=== PATIENT | male | born 1960 | race Caucasian/White ===

== ENCOUNTER 2016-12-31 13:51 | Emergency (ER) | payer SELFPAY ==
[2016-12-31] MEDS ORDERED: Metoprolol Tartrate 5 MG/5 ML SDV IVPUSH ONE (14:10)
[2016-12-31] MEDS ORDERED: Sodium Chloride 0.9% 1,000 ML IV SCH (14:15)
[2016-12-31 14:21] VITALS: BP 152/91
--- NOTE | 2016-12-31 14:24 | EDM.PDOC ---
ED HPI GENERAL MEDICAL PROBLEM - General Chief Complaint: Chest Pain Stated Complaint: HEART PROBLEMS, [id number] Time Seen by Provider: 12/31/16 14:06 Source of Information: Reports: Patient History Limitations: Reports: No Limitations - History of Present Illness INITIAL COMMENTS - FREE TEXT/NARRATIVE: 56 yo white male c/o chest tightness since last PM. PMHx. HTN and Arrythmia. Pt. states he stopped the Metoprolol due to unable to buy it. Pt. smokes 1/4 ppd cigs Onset: Other (PMHx. HTN and Arrythmia) Onset Date: 12/30/16 Onset Time: 12:00 Duration: Day(s): Location: Reports: Chest Quality: Reports: Dull Severity: Moderate Improves with: Reports: None Worsens with: Reports: None Context: Reports: Other (Pt. not taking his Metoprolol as ordered) Associated Symptoms: Reports: No Other Symptoms - Related Data Allergies Allergy/AdvReac Type Severity Reaction Status Date / Time No Known Allergies Allergy Verified 12/31/16 13:54 Home Meds: Home Meds amLODIPine [Norvasc] 5 mg PO DAILY 12/31/16 [History] ED ROS GENERAL - Review of Systems Review Of Systems: See Below Constitutional: Reports: No Symptoms HEENT: Reports: No Symptoms Respiratory: Reports: No Symptoms Cardiovascular: Reports: Chest Pain, Lightheadedness Endocrine: Reports: No Symptoms GI/Abdominal: Reports: No Symptoms : Reports: No Symptoms Musculoskeletal: Reports: No Symptoms Skin: Reports: No Symptoms Neurological: Reports: No Symptoms Psychiatric: Reports: No Symptoms Hematologic/Lymphatic: Reports: No Symptoms Immunologic: Reports: No Symptoms ED EXAM, GENERAL - Physical Exam Exam: See Below Exam Limited By: No Limitations General Appearance: Alert, WD/WN, No Apparent Distress Eye Exam: Bilateral Eye: EOMI, PERRL Ears: Normal External Exam Nose: Normal Inspection Throat/Mouth: Normal Inspection, Normal Lips Head: Atraumatic, Normocephalic Neck: Normal Inspection, Supple, Non-Tender Respiratory/Chest: No Respiratory Distress, Lungs Clear, Normal Breath Sounds Cardiovascular: Tachycardia, Irregularly Irregular, Other (with frequent PVCs) GI/Abdominal: Normal Bowel Sounds, Soft, Non-Tender Back Exam: Normal Inspection, Full Range of Motion Extremities: Normal Inspection, Normal Range of Motion, Non-Tender Neurological: Alert, Oriented, CN II-XII Intact, Normal Cognition Psychiatric: Normal Affect, Normal Mood Skin Exam: Warm, Dry, Intact Lymphatic: No Adenopathy Course - Vital Signs Last Recorded V/S: Last Vital Signs Temp 36.3 C 12/31/16 13:56 Pulse 97 12/31/16 14:19 Resp 18 12/31/16 13:56 BP 152/91 H 12/31/16 14:19 Pulse Ox 98 12/31/16 13:56 - Orders/Labs/Meds Orders: Active Orders 24 hr Category Date Time Status Chest 1V Frontal [CR] Urgent Exams 12/31/16 14:08 Ordered Sodium Chloride 0.9% @ 75 MLS/HR(1000ml) Med 12/31/16 14:15 Ordered Sodium Chloride 0.9% [Normal Saline] 1,000 ml IV ASDIRECTED Medication Orders Sodium Chloride (Normal Saline) 1,000 mls @ 75 mls/hr IV ASDIRECTED GURPREET Last Admin: 12/31/16 14:20 Dose: 75 mls/hr Labs: Laboratory Tests 12/31/16 12/31/16 12/31/16 Range/Units 14:04 14:04 14:04 WBC 13.0 H (5.0-10.0) 10^3/uL RBC 5.14 (4.6-6.2) 10^6/uL Hgb 16.2 (14.0-18.0) g/dL Hct 46.2 (40.0-54.0) % MCV 89.9 (80-100) fL MCH 31.5 (27.0-34.0) pg MCHC 35.1 H (33.0-35.0) g/dL Plt Count 191 (150-450) 10^3/uL Neut % (Auto) 55.5 (42.2-75.2) % Lymph % (Auto) 30.8 (20.5-50.1) % [place] % (Auto) 7.4 (2-8) % Eos % (Auto) 5.8 H (1.0-3.0) % Baso % (Auto) 0.5 (0.0-1.0) % PT 9.7 (9.0-12.0) SEC INR 1.0 (0.9-1.2) APTT 21.7 L (22.0-34.0) SEC D-Dimer, Quantitative < 100 (0-400) ng/mL Sodium 140 (135-145) mmol/L Potassium 3.8 (3.6-5.0) mmol/L Chloride 101 (101-111) mmol/L Carbon Dioxide 26.0 (21.0-31.0) mmol/L Anion Gap 16.8 BUN 19 H (7-18) mg/dL Creatinine 0.9 (0.6-1.3) mg/dL Est Cr Clr Drug Dosing 93.50 mL/min Estimated GFR (MDRD) > 60 BUN/Creatinine Ratio 21.11 Glucose 99 (74-105) mg/dL Calcium 9.2 (8.4-10.2) mg/dl Total Bilirubin 0.8 (0.2-1.0) mg/dL AST 17 (10-42) IU/L ALT 12 (10-60) IU/L Alkaline Phosphatase 72 (42-121) IU/L Troponin I < 0.02 (0.00-0.02) ng/ml Total Protein 7.0 (6.7-8.2) g/dl Albumin 4.4 (3.2-5.5) g/dl Globulin 2.6 Albumin/Globulin Ratio 1.69 Meds: Medications Generic Name Dose Route Start Last Admin Trade Name Freq PRN Reason Stop Dose Admin Sodium Chloride 1,000 mls @ 75 mls/hr 12/31/16 14:15 12/31/16 14:20 Normal Saline IV 75 mls/hr ASDIRECTED GURPREET Administration Discontinued Medications Generic Name Dose Route Start Last Admin Trade Name Freq PRN Reason Stop Dose Admin Aspirin 324 mg 12/31/16 14:27 12/31/16 14:31 Aspirin PO 12/31/16 14:28 324 mg ONETIME ONE Administration Metoprolol Tartrate 2.5 mg 12/31/16 14:10 12/31/16 14:19 Lopressor IVPUSH 12/31/16 14:11 2.5 mg ONETIME ONE Administration Departure - Departure Time of Disposition: 15:10 Disposition: DC/Tfer to Other 70 Reason for Transfer *Q: Primary PCI Indicated Condition: Fair Clinical Impression: Atypical chest pain Arrhythmia Qualifiers: Arrhythmia type: paroxysmal tachycardia, unspecified Qualified Code(s): I47.9 - Paroxysmal tachycardia, unspecified; I47 - Paroxysmal tachycardia Forms: ED Department Discharge, Interfacility Transfer EMTALA - My Orders Last 24 Hours: My Active Orders 12/31/16 14:08 Chest 1V Frontal [CR] Urgent 12/31/16 14:15 Sodium Chloride 0.9% @ 75 MLS/HR(1000ml) Sodium Chloride 0.9% [Normal Saline] 1 ,000 ml IV ASDIRECTED - Assessment/Plan Last 24 Hours: My Active Orders 12/31/16 14:08 Chest 1V Frontal [CR] Urgent 12/31/16 14:15 Sodium Chloride 0.9% @ 75 MLS/HR(1000ml) Sodium Chloride 0.9% [Normal Saline] 1 ,000 ml IV ASDIRECTED
[2016-12-31] MEDS ORDERED: Aspirin 81 MG Tab.Chew PO ONE (14:27)
[2016-12-31 14:31] LABS: CHLORIDE,CL 101 mmol/L (101-111); SODIUM,NA 140 mmol/L (135-145)
--- NOTE | 2016-12-31 15:22 | CR ---
Clinical history: 56-year-old male with chest pains. Interpretation: Negative plain film exam. Upright AP portable chest film confirms normal cardiac silhouette without cephalization of vascular f low, signs of alveolar edema or dependent pleural effusion. [place] thorax unremarkable. No lung mass, hilar lymphadenopathy or focal lobar pneumonia. No atelectasis/collapse. No pneumothora x.
--- NOTE | 2017-01-04 12:29 | EKG ---
12/31/2016 - CLARISSA SCHOFIELD - Dmitri 12-lead EKG shows normal sinus rhythm with sinus tachycardia. Paired ventricular premature complexes noted. No significant ST elevation or ST depression noted on this 12-lead EKG. MS interval of 148. QTc of 442. Nonspecific T-wave changes noted on inferior leads. [facility] /[id number]
--- NOTE | 2017-01-05 16:42 | EKG ---
12/31/2016 - CLARISSA SCHOFIELD - TIME: 14:03:02. Twelve-lead EKG shows normal sinus rhythm with sinus tachycardia with heart rate of 97. Paired ventricular premature complexes noted. No significant ST elevation or ST depression noted. Nonspecific ST-T wave changes noted on lead V2 and V3. [facility] /[id number]
--- NOTE | 2017-01-06 09:34 | EKG ---
12/31/2016- CLARISSA SCHOFIELD - Dmitri 12-lead EKG shows normal sinus rhythm with sinus tachycardia with heart rate of 148. Multiple PVCs noted. Nonspecific repolarization abnormalities noted. Multiple PVCs noted. [facility] /[id number]
== END 2016-12-31 15:40 | disposition other institution (70) ==
LOC: DL.ED 13:51
DX: I47.9 Paroxysmal tachycardia, unspecified (principal); Z79.899 Other long term (current) drug therapy
CPT/HCPCS: 36415; 71010; 80053; 84484; 85025; 85379; 85610; 85730; 96365; 96375; 99285; A9270; J7030; 99284; J3490

== ENCOUNTER 2020-01-12 08:39 | Emergency (ER) | payer SELFPAY ==
[2020-01-12 08:55] VITALS: BP 175/94; PULSE 76
--- NOTE | 2020-01-12 09:02 | EDM.PDOC ---
ED HPI GENERAL MEDICAL PROBLEM - General Chief Complaint: Abdominal Pain Stated Complaint: COLON INFECTION Time Seen by Provider: 01/12/20 08:50 Source of Information: Reports: Patient History Limitations: Reports: No Limitations - History of Present Illness INITIAL COMMENTS - FREE TEXT/NARRATIVE: This 59 yo male patient reports to the ED due to a 4 week history of diffuse abdominal pain. The patient reports his pain level is > 10 at this time. The patient reports he currently has pain across his lower abdomen and in his lower back. The patient reports he has had a colon infection in the past (about 1 year ago) with similar symptoms. The patient reports he has been taking aspirin with little to no symptom relief. The patient has not been seen by a primary care facility or attempted to be seen in a primary care facility. The patient denies any dark stools and denies any blood in his stool. Duration: Week(s): (4), Constant, Getting Worse Location: Reports: Abdomen, Back (low back) Quality: Reports: Ache, Sharp, Stabbing Severity: Severe Improves with: Reports: None Worsens with: Reports: None Context: Reports: Other Associated Symptoms: Reports: No Other Symptoms Abdomen Pain Score (Numeric/FACES): 10 - Related Data Allergies Allergy/AdvReac Type Severity Reaction Status Date / Time No Known Allergies Allergy Verified 01/12/20 08:49 Home Meds: Home Meds amLODIPine [Norvasc] 5 mg PO DAILY 12/31/16 [History] Past Medical History HEENT History: Reports: Hard of Hearing, Impaired Vision, Other (See Below) Other HEENT History: deaf Cardiovascular History: Reports: Hypertension Musculoskeletal History: Reports: Back Pain, Chronic Social & Family History - Family History Family Medical History: Noncontributory - Tobacco Use Tobacco Use Status *Q: Unknown Ever Used Tobacco - Caffeine Use Caffeine Use: Reports: Coffee, Soda, Tea ED ROS GENERAL - Review of Systems Review Of Systems: Comprehensive ROS is negative, except as noted in HPI. ED EXAM, GI/ABD - Physical Exam Exam: See Below Exam Limited By: No Limitations General Appearance: Alert, WD/WN, Moderate Distress Eyes: Bilateral: Normal Appearance, EOMI Ears: Normal External Exam, Normal Canal, Hearing Grossly Normal, Normal TMs Nose: Normal Inspection, Normal Mucosa, No Blood Throat/Mouth: Normal Inspection, Normal Lips, Normal Teeth, Normal Gums, Normal Oropharynx, Normal Voice, No Airway Compromise Head: Atraumatic, Normocephalic Neck: Normal Inspection, Supple, Non-Tender, Full Range of Motion Respiratory/Chest: No Respiratory Distress, Lungs Clear, Normal Breath Sounds, No Accessory Muscle Use, Chest Non-Tender Cardiovascular: Normal Peripheral Pulses, Regular Rate, Rhythm, No Edema, No Gallop, No JVD, No Murmur, No Rub GI/Abdominal Exam: No Organomegaly, No Distention, No Abnormal Bruit, No Mass, Tender (lower abdomen) (Male) Exam: Deferred Rectal (Males) Exam: Deferred Back Exam: Normal Inspection, Full Range of Motion, NT Extremities: Normal Inspection, Normal Range of Motion, Non-Tender, Normal Capillary Refill, No Pedal Edema Neurological: Alert, Oriented, CN II-XII Intact, Normal Cognition, Normal Gait, Normal Reflexes, No Motor/Sensory Deficits Psychiatric: Normal Affect, Normal Mood Skin Exam: Warm, Dry, Intact, Normal Color, No Rash Lymphatic: No Adenopathy Course - Vital Signs Last Recorded V/S: Last Vital Signs Temp 36.8 C 01/12/20 08:53 Pulse 76 01/12/20 08:53 Resp 18 01/12/20 08:53 BP 175/94 H 01/12/20 08:53 Pulse Ox 100 01/12/20 08:53 - Orders/Labs/Meds Orders: Active Orders 24 hr Category Date Time Status CULTURE BLOOD [BC] Stat Lab 01/12/20 09:00 Received Labs: Laboratory Tests 01/12/20 01/12/20 01/12/20 Range/Units 09:00 09:00 09:00 WBC 14.0 H (5.0-10.0) 10^3/uL RBC 4.83 (4.6-6.2) 10^6/uL Hgb 14.6 D (14.0-18.0) g/dL Hct 43.9 (40.0-54.0) % MCV 90.9 (80-100) fL MCH 30.2 (27.0-34.0) pg MCHC 33.3 (33.0-35.0) g/dL Plt Count 209 (150-450) 10^3/uL Neut % (Auto) 76.1 H (42.2-75.2) % Lymph % (Auto) 13.4 L (20.5-50.1) % [place] % (Auto) 7.5 (2-8) % Eos % (Auto) 2.6 (1.0-3.0) % Baso % (Auto) 0.4 (0.0-1.0) % Sodium 143 (136-145) mmol/L Potassium 3.7 (3.5-5.1) mmol/L Chloride 105 (98-107) mmol/L Carbon Dioxide 30 (21-32) mmol/L Anion Gap 11.7 (7-13) mEq/L BUN 16 (7-18) mg/dL Creatinine 1.01 (0.70-1.30) mg/dL Est Cr Clr Drug Dosing 82.84 mL/min Estimated GFR (MDRD) > 60 BUN/Creatinine Ratio 15.8 (No establ ref range) Glucose 120 H (74-99) mg/dL Lactic Acid 0.9 (0.4-2.0) mmol/L Calcium 8.3 L (8.5-10.1) mg/dL Total Bilirubin 0.5 (0.2-1.0) mg/dL AST 13 L (15-37) U/L ALT 23 (16-63) U/L Alkaline Phosphatase 96 (46-116) U/L Total Protein 7.1 (6.4-8.2) g/dL Albumin 3.1 L (3.4-5.0) g/dL Globulin 4.0 Albumin/Globulin Ratio 0.78 Amylase 37 (25-115) U/L Lipase 41 L (73-393) U/L Urine Color (YELLOW) Urine Appearance (CLEAR) Urine pH (5.0-9.0) Ur Specific [place] (1.005-1.030) Urine Protein (NEGATIVE) Urine Glucose (UA) (NEGATIVE) Urine Ketones (NEGATIVE) Urine Occult Blood (NEGATIVE) Urine Nitrite (NEGATIVE) Urine Bilirubin (NEGATIVE) Urine Urobilinogen (0.2-1.0) mg/dL Ur Leukocyte Esterase (NEGATIVE) Urine RBC /HPF Urine WBC (0-5/HPF) /HPF Ur Epithelial Cells (NOT SEEN) /HPF Urine Bacteria (0-FEW/HPF) /HPF Urine Mucus (NOT SEEN) /LPF 01/11/ Range/Units 09:15 WBC (5.0-10.0) 10^3/uL RBC (4.6-6.2) 10^6/uL Hgb (14.0-18.0) g/dL Hct (40.0-54.0) % MCV (80-100) fL MCH (27.0-34.0) pg MCHC (33.0-35.0) g/dL Plt Count (150-450) 10^3/uL Neut % (Auto) (42.2-75.2) % Lymph % (Auto) (20.5-50.1) % [place] % (Auto) (2-8) % Eos % (Auto) (1.0-3.0) % Baso % (Auto) (0.0-1.0) % Sodium (136-145) mmol/L Potassium (3.5-5.1) mmol/L Chloride (98-107) mmol/L Carbon Dioxide (21-32) mmol/L Anion Gap (7-13) mEq/L BUN (7-18) mg/dL Creatinine (0.70-1.30) mg/dL Est Cr Clr Drug Dosing mL/min Estimated GFR (MDRD) BUN/Creatinine Ratio (No establ ref range) Glucose (74-99) mg/dL Lactic Acid (0.4-2.0) mmol/L Calcium (8.5-10.1) mg/dL Total Bilirubin (0.2-1.0) mg/dL AST (15-37) U/L ALT (16-63) U/L Alkaline Phosphatase (46-116) U/L Total Protein (6.4-8.2) g/dL Albumin (3.4-5.0) g/dL Globulin Albumin/Globulin Ratio Amylase (25-115) U/L Lipase (73-393) U/L Urine Color Dark yellow (YELLOW) Urine Appearance Clear (CLEAR) Urine pH 6.0 (5.0-9.0) Ur Specific [place] 1.025 (1.005-1.030) Urine Protein 30 H (NEGATIVE) Urine Glucose (UA) Negative (NEGATIVE) Urine Ketones Negative (NEGATIVE) Urine Occult Blood Trace-intact H (NEGATIVE) Urine Nitrite Negative (NEGATIVE) Urine Bilirubin Negative (NEGATIVE) Urine Urobilinogen 0.2 (0.2-1.0) mg/dL Ur Leukocyte Esterase Negative (NEGATIVE) Urine RBC 0-5 /HPF Urine WBC Not seen (0-5/HPF) /HPF Ur Epithelial Cells Rare (NOT SEEN) /HPF Urine Bacteria Not seen (0-FEW/HPF) /HPF Urine Mucus Few H (NOT SEEN) /LPF Meds: Medications Discontinued Medications Generic Name Dose Route Start Last Admin Trade Name [place] PRN Reason Stop Dose Admin Iopamidol 100 ml 01/12/20 09:42 01/12/20 10:06 Isovue-300 (61%) IVPUSH 01/12/20 09:43 100 ml ONETIME ONE Administration - Re-Assessments/Exams Free Text/Narrative Re-Assessment/Exam: 01/12/20 09:00 The patient was advised that nursing staff can start an IV, he can get some pain medications in the IV and draw labs at that time. The patient refused an IV stating "I don't want to be here all day." The patient was also rude to nursing prior to my visit. Departure - Departure Time of Disposition: 10:32 Disposition: Home, Self-Care 01 Condition: Poor Clinical Impression: Diverticulitis, Pericolonic abscess due to diverticulitis - Discharge Information *PRESCRIPTION DRUG MONITORING PROGRAM REVIEWED*: Not Applicable *COPY OF PRESCRIPTION DRUG MONITORING REPORT IN PATIENT CÉSAR: Not Applicable Instructions: Abdominal Pain, Adult, [id number], Diverticulitis Forms: ED Department Discharge Care Plan Goals: The patient was advised of the examination, lab and CT results during the visit. The patient was encouraged to allow us to transfer him to a larger facility for a consult with surgery, but the patient would like to be started on oral medications. The patient was given scripts for 1) Cipro (500 mg) #28 to take 1 by mouth 2 times per day for 14 days, 2) Metronidazole (500 mg) #42 to take 1 by mouth 3 times per day for 14 days and 3) [place] (10/325) #8 to take 1 by mouth every 6 hours as needed for pain. The patient should follow-up with his primary care facility for continued evaluation and management. If the patient has any additional symptoms or concerns, the patient should either return to the emergency department or visit his primary care facility. Sepsis Event Note (ED) - Evaluation Sepsis Screening Result: No Definite Risk - Focused Exam Vital Signs: Vital Signs Temp Pulse Resp BP Pulse Ox 01/12/20 08:53 36.8 C 76 18 175/94 H 100 - My Orders Last 24 Hours: My Active Orders 01/12/20 09:00 CULTURE BLOOD [BC] Stat - Assessment/Plan Last 24 Hours: My Active Orders 01/12/20 09:00 CULTURE BLOOD [BC] Stat
[2020-01-12 09:27] LABS: ANION GAP 11.7 mEq/L (7-13); CHLORIDE,CL 105 mmol/L (98-107); SODIUM,NA 143 mmol/L (136-145)
[2020-01-12] MEDS ORDERED: Iopamidol 612 MG/ML 100 ML Bottle IVPUSH ONE (09:42)
--- NOTE | 2020-01-12 10:13 | CT ---
PROCEDURE INFORMATION: Exam: CT Abdomen And Pelvis With Contrast Exam date and time: 01/12/2020 9:47 AM Age: 59 years old Clinical indication: Abdominal pain; Additional info: Diffuse abdominal pain TECHNIQUE: Imaging protocol: Computed tomography of the abdomen and pelvis with intravenous contrast. Radiation optimization: All CT scans at this facility use at least one of these dose optimization techniques: automated exposure control; mA and/or kV adjustment per patient size (includes targeted exams where dose is matched to clinical indication); or iterative reconstruction. Contrast material: ISOVUE; Contrast volume: 100 ml; Contrast route: INTRAVENOUS (IV); COMPARISON: No relevant prior studies available. FINDINGS: Liver: There is diffuse decreased attenuation within the liver compatible with fatty change. Gallbladder and bile ducts: Normal. No calcified stones. No ductal dilation. Pancreas: Normal. No ductal dilation. Spleen: Normal. No splenomegaly. Adrenals: Normal. No mass. Kidneys and ureters: Normal. No hydronephrosis. Stomach and bowel: Scattered diverticular present throughout the colon. In the sigmoid colon, there is significant pericolonic fat stranding. There is also a 4.2 1.7 cm focal fluid collection adjacent to the colon compatible with a pericolonic abscess. Appendix: No evidence of appendicitis. Intraperitoneal space: Unremarkable. No free air. No significant fluid collection. Vasculature: Unremarkable. No abdominal aortic aneurysm. Lymph nodes: Unremarkable. No enlarged lymph nodes. Urinary bladder: Unremarkable as visualized. Reproductive: Unremarkable as visualized. Bones/joints: Unremarkable. No acute fracture. Soft tissues: Unremarkable. IMPRESSION: 1. Acute sigmoid diverticulitis with 4.2 x 1.7 cm pericolonic abscess.
== END 2020-01-12 10:43 | disposition home or self-care (01) ==
LOC: DL.ED 08:39
DX: K57.80 Diverticulitis of intestine, part unspecified, with perforation and abscess without bleeding (principal); I10 Essential (primary) hypertension; Z79.899 Other long term (current) drug therapy
CPT/HCPCS: 36415; 74177; 80053; 81001; 82150; 83605; 83690; 85025; 87040; 99284; Q9967

== ENCOUNTER 2022-03-08 11:47 | Inpatient (IN) | payer SELFPAY ==
[2022-03-08] MEDS ORDERED: Albuterol/Ipratropium 3.0-0.5 MG/3 ML Neb Soln NEB ONE ×2 (12:36→13:16)
[2022-03-08] MEDS ORDERED: methylPREDNISolone Sodium Succinate 125 MG/2 ML SDV IVPUSH ONE (12:36)
[2022-03-08 12:55] LABS: CORONAVIRUS COVID-19 NAA NEGATIVE (NEGATIVE); RESPIRATORY SYNCYTIAL VIR NAA NEGATIVE (NEGATIVE)
[2022-03-08] MEDS: Sodium Chloride 0.9% 10 ML Syringe FLUSH PRN ×2 (12:57→23:34)
[2022-03-08] MEDS ORDERED: cefTRIAXone 2 GM in Sodium Chloride 0.9% 100 ML IV ONE (13:14)
[2022-03-08] MEDS ORDERED: Azithromycin 500 MG in Sodium Chloride 0.9% 250 ML IV ONE (13:14)
[2022-03-08 13:20] LABS: ANION GAP 11.5 mEq/L (7-13)
[2022-03-08] MEDS ORDERED: cefTRIAXone 2 GM Vial IVPUSH ONE (13:45)
[2022-03-08] MEDS ORDERED: Polyethylene Glycol 3350 Powder 17 GM Packet PO PRN (15:24)
[2022-03-08] MEDS ORDERED: HYDROmorphone 0.5 MG/0.5 ML Syringe IVPUSH PRN (15:24)
[2022-03-08] MEDS ORDERED: Ondansetron 4 MG/2 ML SDV IVPUSH PRN (15:24)
[2022-03-08] MEDS ORDERED: Magnesium Hydroxide 400 MG/5 ML Susp 30 ML Cup PO PRN (15:24)
[2022-03-08] MEDS ORDERED: Albuterol/Ipratropium 3.0-0.5 MG/3 ML Neb Soln NEB PRN (15:24)
[2022-03-08] MEDS ORDERED: Acetaminophen/HYDROcodone 325-10 MG Tab PO PRN (15:24)
[2022-03-08] MEDS ORDERED: Acetaminophen 325 MG Tab PO PRN (15:24)
[2022-03-08] MEDS ORDERED: Bisacodyl 5 MG Tab PO PRN (15:24)
[2022-03-08] MEDS ORDERED: 50% Dextrose in Water 50 ML Syringe IVPUSH PRN (15:35)
[2022-03-08] MEDS ORDERED: Glucagon,Human Recombinant 1 MG Vial IM PRN (15:35)
[2022-03-08] MEDS ORDERED: Sodium Chloride 0.9% 1,000 ML IV SCH ×2 (15:45→20:45)
[2022-03-08] MEDS ORDERED: guaiFENesin 600 MG Tab.ER PO ONE (16:00)
[2022-03-08 18:32] LABS: ANION GAP 12.9 mEq/L (7-13)
[2022-03-08] MEDS: Albuterol/Ipratropium 3.0-0.5 MG/3 ML Neb Soln NEB SCH (18:39)
[2022-03-08] MEDS: Formoterol/Mometasone 200-5 MCG 8.8 GM Inhaler IH SCH (18:55)
[2022-03-08] MEDS: methylPREDNISolone Sodium Succinate 125 MG/2 ML SDV IVPUSH SCH ×2 (18:55→23:34)
[2022-03-08] MEDS: Insulin Lispro 100 Units/ML 3 ML Vial SUBCUT SCH (18:56)
[2022-03-08] MEDS: Saccharomyces Boulardii (Probiotic) 250 MG Cap PO SCH (20:47)
[2022-03-08] MEDS: guaiFENesin/Dextromethorphan 100-10 MG/5 ML Soln 5 ML Cup PO PRN (20:47)
[2022-03-08] MEDS: Check Patch TRDERM SCH (20:48)
[2022-03-08] MEDS ORDERED: guaiFENesin 600 MG Tab.ER PO SCH (21:00)
[2022-03-08] MEDS ORDERED: Enoxaparin 80 MG/0.8 ML Syringe SUBCUT ONE (21:00)
[2022-03-08] MEDS ORDERED: Heparin Sodium 5,000 Units/ML Vial SUBCUT SCH (22:00)
[2022-03-08] MEDS: Albuterol/Ipratropium 3.0-0.5 MG/3 ML Neb Soln NEB PRN (23:34)
[2022-03-09] MEDS: methylPREDNISolone Sodium Succinate 125 MG/2 ML SDV IVPUSH SCH ×5 (05:35→23:18)
[2022-03-09] MEDS: Albuterol/Ipratropium 3.0-0.5 MG/3 ML Neb Soln NEB SCH ×2 (06:14→18:11)
[2022-03-09] MEDS: Albuterol/Ipratropium 3.0-0.5 MG/3 ML Neb Soln NEB PRN (06:15)
[2022-03-09 07:00] LABS: ANION GAP 14.3 mEq/L (7-13); CHLORIDE,CL 101 mmol/L (98-107); SODIUM,NA 140 mmol/L (136-145)
[2022-03-09 07:06] LABS: ESTIMATED GFR 47 mL/min (>=60)
[2022-03-09] MEDS: Formoterol/Mometasone 200-5 MCG 8.8 GM Inhaler IH SCH ×2 (08:37→17:18)
[2022-03-09] MEDS: Insulin Lispro 100 Units/ML 3 ML Vial SUBCUT SCH ×3 (08:38→17:17)
[2022-03-09] MEDS: Saccharomyces Boulardii (Probiotic) 250 MG Cap PO SCH ×2 (08:40→20:35)
[2022-03-09] MEDS: cefTRIAXone 2 GM Vial IVPUSH SCH (08:42)
[2022-03-09] MEDS: Tiotropium Inhaler 18 MCG Inhalation Powder Cap Kit of 5 INH SCH (08:44)
[2022-03-09] MEDS: Azithromycin 500 MG in Sodium Chloride 0.9% 250 ML IV SCH (08:53)
[2022-03-09] MEDS: guaiFENesin 600 MG Tab.ER PO SCH ×2 (11:09→20:35)
[2022-03-09] MEDS ORDERED: Potassium Chloride 10 MEQ Tab.ER PO ONE (12:00)
[2022-03-09] MEDS: Nicotine 21 MG/24 Hr Patch TRDERM SCH (16:16)
[2022-03-09] MEDS: Lactated Ringers 1,000 ML IV SCH (19:01)
[2022-03-09] MEDS: Enoxaparin 40 MG/0.4 ML Syringe SUBCUT SCH (20:35)
[2022-03-09] MEDS: Check Patch TRDERM SCH (22:39)
[2022-03-09] MEDS: guaiFENesin/Dextromethorphan 100-10 MG/5 ML Soln 5 ML Cup PO PRN (22:40)
[2022-03-09] MEDS ORDERED: Ziprasidone Mesylate 20 MG Vial IM ONE (22:53)
[2022-03-10] MEDS: Lactated Ringers 1,000 ML IV SCH ×2 (04:47→16:37)
[2022-03-10] MEDS: Albuterol/Ipratropium 3.0-0.5 MG/3 ML Neb Soln NEB PRN ×2 (04:47→14:40)
[2022-03-10] MEDS: methylPREDNISolone Sodium Succinate 125 MG/2 ML SDV IVPUSH SCH ×4 (04:59→23:35)
[2022-03-10] MEDS: Albuterol/Ipratropium 3.0-0.5 MG/3 ML Neb Soln NEB SCH ×2 (06:44→17:54)
[2022-03-10 07:04] LABS: ANION GAP 10.4 mEq/L (7-13)
[2022-03-10] MEDS: Insulin Lispro 100 Units/ML 3 ML Vial SUBCUT SCH ×3 (09:02→18:33)
[2022-03-10] MEDS: Formoterol/Mometasone 200-5 MCG 8.8 GM Inhaler IH SCH ×2 (09:02→18:30)
[2022-03-10] MEDS: cefTRIAXone 2 GM Vial IVPUSH SCH (09:04)
[2022-03-10] MEDS: Enoxaparin 40 MG/0.4 ML Syringe SUBCUT SCH ×2 (09:06→21:30)
[2022-03-10] MEDS: Saccharomyces Boulardii (Probiotic) 250 MG Cap PO SCH ×2 (09:09→21:30)
[2022-03-10] MEDS: Nicotine 21 MG/24 Hr Patch TRDERM SCH (09:10)
[2022-03-10] MEDS: guaiFENesin 600 MG Tab.ER PO SCH ×2 (09:10→21:30)
[2022-03-10] MEDS: Tiotropium Inhaler 18 MCG Inhalation Powder Cap Kit of 5 INH SCH (09:12)
[2022-03-10] MEDS: Azithromycin 500 MG in Sodium Chloride 0.9% 250 ML IV SCH (09:14)
[2022-03-10] MEDS: Check Patch TRDERM SCH (21:30)
[2022-03-11] MEDS: Lactated Ringers 1,000 ML IV SCH (02:21)
[2022-03-11] MEDS: methylPREDNISolone Sodium Succinate 125 MG/2 ML SDV IVPUSH SCH ×2 (05:26→12:31)
[2022-03-11 07:09] LABS: ANION GAP 11.5 mEq/L (7-13)
[2022-03-11] MEDS: Albuterol/Ipratropium 3.0-0.5 MG/3 ML Neb Soln NEB SCH (07:49)
[2022-03-11] MEDS: Formoterol/Mometasone 200-5 MCG 8.8 GM Inhaler IH SCH (07:49)
[2022-03-11] MEDS: Insulin Lispro 100 Units/ML 3 ML Vial SUBCUT SCH ×2 (08:09→12:32)
[2022-03-11] MEDS: Saccharomyces Boulardii (Probiotic) 250 MG Cap PO SCH (08:10)
[2022-03-11] MEDS: guaiFENesin 600 MG Tab.ER PO SCH (08:10)
[2022-03-11] MEDS: Enoxaparin 40 MG/0.4 ML Syringe SUBCUT SCH (08:10)
[2022-03-11] MEDS: Nicotine 21 MG/24 Hr Patch TRDERM SCH (08:11)
[2022-03-11] MEDS: Tiotropium Inhaler 18 MCG Inhalation Powder Cap Kit of 5 INH SCH (08:12)
[2022-03-11] MEDS ORDERED: amLODIPine 5 MG Tab PO SCH (09:00)
[2022-03-11] MEDS: Azithromycin 500 MG in Sodium Chloride 0.9% 250 ML IV SCH (09:47)
[2022-03-11] MEDS: Sodium Chloride 0.9% 10 ML Syringe FLUSH PRN (09:50)
[2022-03-11] MEDS: cefTRIAXone 2 GM Vial IVPUSH SCH (09:50)
[2022-03-11 12:11] VITALS: BP 153/71; PULSE 66
== END 2022-03-11 16:20 | disposition home or self-care (01) | DRG 193 ==
LOC: DL.ED 11:47 → DL.MS 14:46 → UNDOADMIN 14:46 → DL.ED 14:47 → DL.MS 03-10 14:46
PROVIDERS: ADMIT Internal Medicine; ATTEND Internal Medicine
DX: J18.9 Pneumonia, unspecified organism (principal); J96.01 Acute respiratory failure with hypoxia; J44.0 Chronic obstructive pulmonary disease with (acute) lower respiratory infection; Z68.41 Body mass index [BMI] 40.0-44.9, adult; J44.1 Chronic obstructive pulmonary disease with (acute) exacerbation; N17.9 Acute kidney failure, unspecified; R73.9 Hyperglycemia, unspecified; R79.89 Other specified abnormal findings of blood chemistry; F17.210 Nicotine dependence, cigarettes, uncomplicated; G47.33 Obstructive sleep apnea (adult) (pediatric); E66.9 Obesity, unspecified; E87.6 Hypokalemia; N18.9 Chronic kidney disease, unspecified; E88.09 Other disorders of plasma-protein metabolism, not elsewhere classified; H54.7 Unspecified visual loss; H91.90 Unspecified hearing loss, unspecified ear; I10 Essential (primary) hypertension; G89.29 Other chronic pain; M54.9 Dorsalgia, unspecified; Z91.14 Patient's other noncompliance with medication regimen; Z97.4 Presence of external hearing-aid; Z79.899 Other long term (current) drug therapy; Z20.822 Contact with and (suspected) exposure to COVID-19
CPT/HCPCS: 0241U; 36415; 71045; 76770; 80048; 80053; 82947; 83036; 83605; 83735; 83880; 84145; 84484; 85025; 85379; 86140; 87040; 94640; 96365; 96375; 99285-25; A9270-GY; J0456; J0696; J1650; J1815-GY; J2930; J3486; J3490; J7030; J7050; J7120; J7620-GY